=== PATIENT | male | born 1995 | race Caucasian/White ===

== ENCOUNTER 2017-07-05 08:04 | Emergency (ER) | payer BC ==
[2017-07-05 08:42] VITALS: BP 128/84
--- NOTE | 2017-07-05 09:18 | UC ---
Throat Pain/Nasal Antonio HPI - HPI Summary HPI Summary: 21 yo male with 2 day hx of sore throat/fever/chills and myalgias no cough some n/v - History of Current Complaint Chief Complaint: UCLowerExtremity Stated Complaint: FEVER, CHILLS, NAUSEA, ST Time Seen by Provider: 07/05/17 09:06 Hx Obtained From: Patient Onset/Duration: Gradual Onset, Lasting Days Severity: Moderate Pain Intensity: 5 Pain Scale Used: 0-10 Numeric Associated Signs & Symptoms: Positive: Vomiting Related History: Prior ENT Surgery, T & A - Epiglottits Risk Factors Epiglottis Risk Factors: Negative - Allergies/Home Medications Allergies/Adverse Reactions: Allergies Allergy/AdvReac Type Severity Reaction Status Date / Time No Known Allergies Allergy Verified 07/05/17 08:34 Home Medications: Home Medications Ascorbic Acid TAB* [Vitamin C TAB*] 2 tab PO BID 07/05/17 [History Confirmed ] Ibuprofen TAB* [Motrin TAB* 600 MG] 600 mg PO Q6HR PRN 07/05/17 [History Confirmed 07/05/17] PMH/Surg Hx/FS Hx/Imm Hx Previously Healthy: Yes - Surgical History Surgical History: Yes Surgery Procedure, Year, and Place: T&A - Family History Known Family History: Negative: Cardiac Disease, Respiratory Disease - Social History Alcohol Use: Weekly Substance Use Type: None Smoking Status (MU): Former Smoker Type: Cigarettes, Smokeless Tobacco Amount Used/How Often: 2-3 TIMES DAILY Length of Time of Smoking/Using Tobacco: APPROX 1 YR Household Exposure Type: Cigarettes Review of Systems Constitutional: Fever, Chills Skin: Negative Eyes: Negative ENT: Sore Throat Respiratory: Negative Cardiovascular: Negative Gastrointestinal: Vomiting, Nausea Genitourinary: Negative Motor: Negative Neurovascular: Negative Musculoskeletal: Myalgia Neurological: Headache Psychological: Negative Is Patient Immunocompromised?: No All Other Systems Reviewed And Are Negative: Yes Physical Exam Triage Information Reviewed: Yes Appearance: Well-Appearing, No Pain Distress, Well-Nourished Vital Signs: Initial Vital Signs Temp 98.6 F 07/05/17 08:36 Pulse 60 07/05/17 08:36 Resp 16 07/05/17 08:36 BP 128/84 07/05/17 08:36 Pulse Ox 99 07/05/17 08:36 Eyes: Positive: Conjunctiva Clear ENT: Positive: Pharyngeal erythema, Uvula midline. Negative: Tonsillar swelling , Tonsillar exudate, Trismus, Muffled voice, Hoarse voice, Dental tenderness, Sinus tenderness Neck: Positive: Supple, Nontender, Enlarged Nodes @ - ant cerv Respiratory: Positive: Lungs clear, Normal breath sounds, No respiratory distress, No accessory muscle use Cardiovascular: Positive: RRR, No Murmur Abdomen Description: Positive: Nontender, No Organomegaly, Soft. Negative: CVA Tenderness (R), CVA Tenderness (L) Bowel Sounds: Positive: Present Musculoskeletal: Positive: ROM Intact, No Edema Neurological: Positive: Alert Psychological Exam: Normal Skin Exam: Normal Throat Pain/Nasal Course/Dx - Course Course Of Treatment: strep (-). influenza (-) - Differential Dx/Diagnosis Provider Diagnoses: viral pharngitis Discharge - Sign-Out/Discharge Documenting (check all that apply): Discharge - Discharge Plan Condition: Stable Disposition: HOME Prescriptions: Ondansetron TAB* [Zofran Tab*] 4 mg PO Q6H PRN #6 tab PRN Reason: Nausea Patient Education Materials: Pharyngitis (ED) Forms: *Work Release Referrals: Non Staff,Doctor [Primary Care Provider] - Additional Instructions: rest fluids tylenol recheck for new or worsening symtpoms or if not better in 2-3 days both strep and flu test were negative - Billing Disposition and Condition Condition: STABLE Disposition: HOME
== END 2017-07-05 09:53 | disposition home or self-care (01) ==
LOC: UCCORT 08:04
DX: J02.9 Acute pharyngitis, unspecified (principal); Z87.891 Personal history of nicotine dependence
CPT/HCPCS: 87502; 87651; 99212; G0463